=== PATIENT | female | born 1995 ===

== ENCOUNTER → 2024-02-17 | Outpatient (CLI) | payer MEDICAID ==
--- NOTE | 2024-02-17 12:43 | XR ---
EXAMINATION TYPE: XR chest 2V DATE OF EXAM: 02/17/2024 12:37 PM COMPARISON: None TECHNIQUE: XR chest 2V Frontal and lateral views of the chest. CLINICAL INDICATION:Female, 28 years old with history of PRE SURGICAL; FINDINGS: Lungs/Pleura: There is no evidence of pleural effusion, focal consolidation, or pneumothorax. Pulmonary vascularity: Unremarkable. Heart/mediastinum: Cardiomediastinal silhouette is unremarkable. Musculoskeletal: No acute osseous pathology. IMPRESSION: No acute cardiopulmonary disease/process. [facility], , 02/17/2024 12:41 PM
== END | disposition home or self-care (01) ==
LOC: RADXRMAIN 12:14
DX: Z01.818 Encounter for other preprocedural examination (principal)
CPT/HCPCS: 71046